=== PATIENT | male | born 1940 | race Caucasian/White ===

== ENCOUNTER → 2016-06-13 | Outpatient (CLI) | payer MEDICARE ==
[2016-06-13 10:50] LABS: PROTHROMBIN TIME 13.7 SEC (11.4-15.4)
[2016-06-13 10:57] LABS: ABSOLUTE BASOPHILS # (AUTO) 0.1 10^3/uL (0.0-0.2); ABSOLUTE EOSINOPHILS # (AUTO) 0.1 10^3/uL (0.0-0.6); ABSOLUTE LYMPHOCYTES (AUTO) 0.6 10^3/uL (0.5-4.7); ABSOLUTE MONOCYTES (AUTO) 0.2 10^3/uL (0.1-1.4); BASOPHILS % (AUTO) 1.9 % (0-2); EOSINOPHILS % (AUTO) 1.5 % (0-6); HEMATOCRIT 39.7 % (37.9-51.0); HEMOGLOBIN 13.5 g/dL (13.5-17.0); HGB HCT DIFFERENCE 0.8; LYMPHOCYTES % (AUTO) 16.3 % (13-45); MEAN CORPUSCULAR HEMOGLOBIN 32.5 pg (27.0-33.4); MEAN CORPUSCULAR HGB CONC 34.1 g/dL (32.0-36.0); MEAN CORPUSCULAR VOLUME 95 fl (80-97); MONOCYTES % (AUTO) 3.8 % (3-13); RED BLOOD COUNT 4.16 10^6/uL (4.35-5.55); RED CELL DISTRIBUTION WIDTH 14.4 % (11.5-14.0); SEGMENTED NEUTROPHILS % (AUTO) 76.5 % (42-78)
[2016-06-13 11:14] LABS: ALANINE AMINOTRANSFERASE 25 U/L (21-72); ALBUMIN 4.2 g/dL (3.5-5.0); ALKALINE PHOSPHATASE 93 U/L (38-126); ANION GAP 10 (5-19); ASPARTATE AMINO TRANSFERASE 20 U/L (17-59); BILIRUBIN,TOTAL 0.6 mg/dL (0.2-1.3); BLOOD UREA NITROGEN 22 mg/dL (7-20); CALCIUM 9.8 mg/dL (8.4-10.2); CARBON DIOXIDE 25 mmol/L (22-30); CHLORIDE 111 mmol/L (98-107); CHOLESTEROL 139.48 mg/dL (0-200); CREATININE RESULT 1.32 mg/dL (0.52-1.25); Direct HDL 60 mg/dL (>40); GLUCOSE 133 mg/dL (75-110); MAGNESIUM 1.6 mg/dL (1.6-2.3); PHOSPHORUS 3.6 mg/dL (2.5-4.5); POTASSIUM 4.8 mmol/L (3.6-5.0); SODIUM 145.6 mmol/L (137-145); TOTAL PROTEIN 6.9 g/dL (6.3-8.2); TRIGLYCERIDES 91 mg/dL (<150)
[2016-06-13 11:25] LABS: DIRECT LDL 50 mg/dL (<100)
[2016-06-14 07:15] LABS: VITAMIN D 25-HYDROXY 29.2 ng/mL (30.0-100.0)
[2016-06-15 08:36] LABS: TACROLIMUS (FK506) 7.7 ng/mL (2.0-20.0)
[2016-06-16 11:21] LABS: CYTOMEGALOVIRUS DNA PCR QUAL Negative (Negative)
== END ==
LOC: OD 08:56
PROVIDERS: ATTEND Nurse Practitioner Adult Health
DX: Z94.1 Heart transplant status (principal); Z79.01 Long term (current) use of anticoagulants; Z79.899 Other long term (current) drug therapy; R79.89 Other specified abnormal findings of blood chemistry; E78.5 Hyperlipidemia, unspecified; E55.9 Vitamin D deficiency, unspecified; Z12.5 Encounter for screening for malignant neoplasm of prostate; B25.9 Cytomegaloviral disease, unspecified
CPT/HCPCS: 36415; 80053; 80061; 80197; 82306; 83036; 83735; 84100; 84443; 85025; 85610; 87496